=== PATIENT | female | born 2000 | race Caucasian/White ===

== ENCOUNTER 2020-04-10 22:49 | Emergency (ER) | payer BC, SELFPAY ==
[2020-04-10 22:50] VITALS: BP 114/76; PULSE 90; RESP 16; TEMP 36.8; O2SAT 100; BMI 27.5
--- NOTE | 2020-04-10 23:09 | RAD_ITS ---
STUDY: X-RAY CHEST REASON FOR EXAM: Female, 19 years old. Chest pain TECHNIQUE: Single AP portable view of the chest. COMPARISON: None. FINDINGS: The lungs are clear and expanded. There is no demonstrated pleural abnormality. Normal size heart. Normal mediastinum and dixie. Normal visualized pulmonary arteries. Normal visualized aortic arch and descending thoracic aorta. Normal visualized thoracic spine. Normal visualized ribs, clavicles, and shoulders. Postoperative changes in the epigastric region. RAD/Chest 1 View (Portable) IMPRESSION: No demonstrated acute cardiopulmonary process. Electronically Signed: Lisa Vega MD at 0:55 EDT Tel , Service support ,
--- NOTE | 2020-04-10 23:14 | ED.RN ---
RN CALLED FOR EKG, PULLED OLD EKGS FOR
[2020-04-10] MEDS: 0.9% Normal Saline 1,000 ML 1000 ML IV (23:24)
[2020-04-10] MEDS: Ketorolac 15 MG/ML Vial IV (23:24)
[2020-04-10] MEDS: Glucagon 1 MG/ML Syringe IV (23:24)
[2020-04-10] MEDS: Ondansetron 4 MG/2 ML Vial IV (23:24)
[2020-04-10 23:26] LABS: Internal QC Validated? YES +Cl - CLEAR BKGD; Pregnancy, Serum, hCG Quali. NEGATIVE Negative
[2020-04-10 23:33] LABS: ALB/GLOB Ratio 0.9 RATIO (0.9-2.4); AST(SGOT) 9 U/L (15-37); Alanine Aminotransfer ALT/SGPT 12 U/L (13-56); Albumin, Serum 3.5 g/dL (3.2-5.0); Alkaline Phosphatase 56 U/L (45-117); Anion Gap 7 (5-15); BUN 20 mg/dL (7-18); BUN/Creat Ratio 25.4 RATIO (10-20); Calcium,Total 8.3 mg/dL (8.5-10.1); Chloride 111 mmol/L (98-107); Creatinine, Serum 0.79 mg/dL (0.55-1.02); EST Glomerular Filtration Rate 99 mL/min (>60); Est Glom Filt Rate - Afr Amer 120 mL/min (>60); Estimated Creatinine Clearance 98.91 ml/min; Glucose 119 mg/dL (74-106); Lipase 103 U/L (73-393); Potassium 3.3 mmol/L (3.5-5.1); Protein, Total 7.5 g/dL (6.4-8.2); Sodium Level 142 mmol/L (136-145)
[2020-04-10 23:45] LABS: Absolute Lymphocyte Count 4.42 X10^3/uL (0.83-4.51); Basophil# 0.07 X10^3/uL; Basophil% 0.8 % (0-1); Eosinophil# 0.12 X10^3/uL; Eosinophils% 1.3 % (0-5); Hematocrit 38.1 % (37-47); Hemoglobin 11.9 g/dL (12.0-15.0); Lymphocyte # 4.42 X10^3/ul (4.0); Lymphocyte % 48.6 % (19-41); Mean Corp Hgb Conc 31.2 g/dL (32-36); Mean Corpuscular Hgb 24.8 pg (27.0-32.0); Mean Corpuscular Volume 79.5 fL (81-99); Mean Platelet Vol. 11.1 fl (6.2-12.0); Monocyte# 0.43 X10^3/uL; Monocyte% 4.7 % (0-10); NRBC Flagged by Analyzer 0 % (0-5); Neutrophil # 4.02 X10^3/uL (2.7-7.7); Neutrophil % 44.3 % (47-70); Platelet Count 314 K/mm3 (150-450); RBC Distribution Width CV 14.5 % (11.6-14.6); Red Blood Count 4.79 M/mm3 (4.2-5.4); White Blood Count 9.1 K/mm3 (4.4-11.0)
--- NOTE | 2020-04-11 00:19 | ED.DCSUM_ITS ---
- ER Visit Summary Date of Service: 04/11/20 Chief Complaint: Chest pain History of Present Illness: The patient is a 19 F who is a [employer] student from [place]. She reports that she has a history of a gastric sleeve 4 to 5 years ago. States that this evening she had eaten Urdu food which consisted of noodles, rice, and fairly large pieces of steak. She also was drinking soda a 2 candy bars. She feels like something got stuck in her chest. Describes that she then went up and was vomiting and had the onset of a sharp pain. States is 10 out of 10 at worst and 6 out of 10 currently. Is worsened by breathing and relieved by nothing. She denies any nausea at this point. No diarrhea. Her last bowel was today. No hematochezia. No dysuria frequency. She is never had any thing like this before. Patient has any personal family history of DVT. She denies calf pain or ankle swelling. Physical Examination: Vitals: Stable. Afebrile. General: Well-nourished and well-developed. Head: Normocephalic atraumatic. Neck: Supple, no lymphadenopathy. No JVD. Nontender. Cardiovascular: Regular rate and rhythm. No murmurs. Respiratory: No respiratory distress. Clear to auscultation bilaterally. Mild tenderness palpation to the lower chest. Abdominal: Soft, mild epigastric tenderness to palpation, nondistended, normal bowel sounds. No guarding, rebound, or peritoneal signs. Back: Nontender. Extremities: Nontender, no edema. Skin: Normal color, no rash. Neurologic: Alert and oriented ?3. Cranial nerves II through XII are intact. Normal strength and sensation. Psych: Normal affect. Test Results: CBC shows a hemoglobin of 11.9 with 44 segmented neutrophils and 49 lymphocytes. Chem-7 shows a potassium of 3.3, chloride 111, BUN of 20, glucose 118, calcium 8.3. LFTs show an ALT of 12 and AST of 9. Lipase is 103. test is negative. Clinical Impression(s) from Imaging Studies Chest X-Ray 04/10/20 23:09 IMPRESSION: No demonstrated acute cardiopulmonary process. Electronically Signed: Lisa Vega MD at 0:55 EDT Tel , Service support , Emergency Department Course and Treatment: Patient had an IV placed. She was given a liter normal saline. She was given Toradol, glucagon, and Zofran IV. She is been able to drink without difficulty while here. Patient reports her pain is resolved and she would like to go home. Treatment Plan: Patient be discharged with instructions to follow-up the [facility] and/or Dr. Aguila in 1 to 2 days if not improving. Return to the emergency department for any worsening symptoms. Disposition: To home in improved and stable condition. Impression: 1. Epigastric pain, acute. 2. History of gastric sleeve. This note was generated with [employer] dictation software. It may contain incorrect words, spelling, and punctuation that were not noted in review of the chart prior to signing ED Disposition - Plan for ED Patient: Disposition: Home or Assisted Living Instructions: ED Abdominal Pain Unkn Cause Fem Referrals: Winston Aguila MD [STAFF PHYSICIAN] - 1-2 Days if not improving [facility] [GROUP OF PHYSICIANS] - 1-2 Days if not improving
[2020-04-11 01:01] VITALS: BP 97/52; PULSE 79; RESP 19; O2SAT 99
[2020-04-11 01:14] VITALS: BP 90/49; PULSE 76; RESP 19; O2SAT 100
== END 2020-04-11 01:31 | disposition home or self-care (01) ==
LOC: ED 23:13
PROVIDERS: Emergency Provider Emergency Medicine
DX: R10.13 Epigastric pain (principal); Z98.84 Bariatric surgery status; R06.00 Dyspnea, unspecified
CPT/HCPCS: 71045; 80053; 83690; 84703; 85025; 96361; 96374; 96375; 99285; J7030; A4216; J1610; J2405